=== PATIENT | female | born 1940 | race Caucasian/White ===

== ENCOUNTER 2023-08-11 17:17 | Inpatient (IN) | payer MEDICARE ==
[~2023-08-11] VITALS: Ht 157.5 cm; Wt 59.0 kg
[2023-08-11 17:51] LABS: BASOPHILS % 0.2 % (0.0-1.0); EOSINOPHILS % 0.1 % (0.0-6.0); HEMATOCRIT 38.7 % (34.2-44.1); HEMOGLOBIN 13.7 g/dL (12.0-16.0); LYMPHOCYTES # (AUTO) 0.7 (1.0-3.2); MEAN CORPUSCULAR HEMOGLOBIN 30.8 pg (28-32); MEAN CORPUSCULAR HGB CONC 35.4 g/dL (31-35); MONOCYTES # (AUTO) 0.6 (0.2-0.8); MONOCYTES % 5.4 % (4.4-11.3); NEUTROPHILS # (AUTO) 8.9 (2.1-6.9); NEUTROPHILS % 86.7 % (38.7-80.0); PLATELET COUNT 195 x10e3/uL (140-360); RED BLOOD COUNT 4.45 x10e6/uL (3.6-5.1); RED CELL DISTRIBUTION WIDTH 12.7 % (11.7-14.4); WHITE BLOOD COUNT 10.27 x10e3/uL (4.8-10.8)
[2023-08-11] MEDS ORDERED: FLUTICASONE-SA1 EAC1 (17:52)
[2023-08-11] MEDS ORDERED: LEVOTHYROXINE75 MCG PO (17:52)
[2023-08-11] MEDS ORDERED: ATENOLOL-CHLOR1 EAC1 PO (17:52)
[2023-08-11] MEDS ORDERED: PRAVASTATIN SOD20 MG PO (17:52)
[2023-08-11 18:08] LABS: CLARITY,URINE CLOUDY (CLEAR); COLOR,URINE YELLOW (YELLOW); LEUKOCYTE ESTERASE ,URINE MODERATE (NEGATIVE); NITRITE,URINE POSITIVE (NEGATIVE); PH,URINE 6.5 (5 - 7)
[2023-08-11 18:08] LABS: ALBUMIN 3.2 g/dL (3.5-5.0); ALBUMIN/GLOBULIN RATIO 0.8 (0.8-2.0); ANION GAP 18.3 mmol/L (8-16); BILIRUBIN,TOTAL 0.9 mg/dL (0.2-1.2); CALCIUM 8.8 mg/dL (8.4-10.2); CREATININE, SERUM 0.87 mg/dL (0.57-1.11); TOTAL PROTEIN 7.2 g/dL (6.5-8.1)
[2023-08-11 18:09] LABS: BILIRUBIN,URINE NEGATIVE (NEGATIVE); GLUCOSE, URINE NEGATIVE (NEGATIVE); KETONES,URINE NEGATIVE (NEGATIVE); PROTEIN,URINE DIPSTICK 1+ (NEGATIVE); URINE UROBILINOGEN 4 mg/dL (0.2 - 1)
[2023-08-11 18:11] LABS: POTASSIUM 3.3 mmol/L (3.5-5.1)
[2023-08-11 18:18] LABS: BACTERIA,URINE MANY /HPF; EPITHELIAL CELLS,URINE MANY /LPF; TRANSITIONAL EPI CELLS,URINE MODERATE; WBC,URINE (MAN) >50 /HPF (0-5)
[2023-08-11] MEDS ORDERED: SODIUM CHLORIDE FLUSH 10 ML SYR INJ PRN (19:15)
[2023-08-11 19:56] LABS: TROPONIN I 0.015 ng/mL (0-0.300)
[2023-08-11 20:27] VITALS: PULSE 77; RESP 16; O2SAT 89
[2023-08-11 20:29] VITALS: PULSE 77; RESP 16; O2SAT 95
[2023-08-11 21:30] VITALS: BP 116/70; PULSE 76; RESP 18; TEMP 97.9; O2SAT 95
[2023-08-11 22:00] VITALS: BP 116/70; PULSE 76; RESP 18; TEMP 97.9; O2SAT 95
[2023-08-11] MEDS: LORAZEPAM INJ 2 MG/ML VIAL IV ONE (23:40)
[2023-08-12] VITALS (9 sets, daily range): BP systolic 98–106; BP diastolic 53–60; PULSE 68–79; RESP 16–20; TEMP 97.8–98.8; O2SAT 92–98
[2023-08-12] MEDS: SODIUM CHLORIDE 0.9% 250ML 250 ML ONE (00:08)
[2023-08-12 04:57] LABS: BASOPHILS % 0.4 % (0.0-1.0); EOSINOPHILS % 0.4 % (0.0-6.0); HEMATOCRIT 37.3 % (34.2-44.1); HEMOGLOBIN 12.7 g/dL (12.0-16.0); LYMPHOCYTES # (AUTO) 0.6 (1.0-3.2); LYMPHOCYTES % 5.8 % (18.0-39.1); MEAN CORPUSCULAR HEMOGLOBIN 30.3 pg (28-32); MONOCYTES # (AUTO) 0.6 (0.2-0.8); MONOCYTES % 5.1 % (4.4-11.3); NEUTROPHILS # (AUTO) 9.5 (2.1-6.9); NEUTROPHILS % 87.8 % (38.7-80.0); PLATELET COUNT 170 x10e3/uL (140-360); RED BLOOD COUNT 4.19 x10e6/uL (3.6-5.1); RED CELL DISTRIBUTION WIDTH 12.6 % (11.7-14.4); WHITE BLOOD COUNT 10.77 x10e3/uL (4.8-10.8)
[2023-08-12 05:19] LABS: ALBUMIN 2.8 g/dL (3.5-5.0); ALBUMIN/GLOBULIN RATIO 0.8 (0.8-2.0); ANION GAP 14.9 mmol/L (8-16); BILIRUBIN,TOTAL 1.5 mg/dL (0.2-1.2); CALCIUM 8.7 mg/dL (8.4-10.2); CREATININE, SERUM 0.77 mg/dL (0.57-1.11); TOTAL PROTEIN 6.1 g/dL (6.5-8.1)
[2023-08-12 05:31] LABS: POTASSIUM 2.9 mmol/L (3.5-5.1)
[2023-08-12 05:54] LABS: TROPONIN I 0.02 ng/mL (0-0.300)
[2023-08-12] MEDS ORDERED: POTASSIUM CHLORIDE 20 MEQ TAB CR PO STA (08:01)
[2023-08-12] MEDS: POTASSIUM CHLORIDE 10MEQ/100ML 200 ML IV ONE (09:47)
[2023-08-12 10:08] LABS: BAND NEUTROPHILS % (MANUAL) 1 %; LYMPHOCYTES % (MANUAL) 8 % (19-48); MONOCYTES % (MANUAL) 3 % (3.4-9.0); NEUTROPHILS % (MANUAL) 88 % (40-74)
[2023-08-12 10:09] LABS: PLATELET ESTIMATE ADEQUATE; PLATELET MORPHOLOGY COMMENT NORMAL; RBC MORPHOLOGY COMMENT NORMAL
[2023-08-12] MEDS ORDERED: POTASSIUM CHLORIDE 20 MEQ TAB CR PO SCH (10:30)
[2023-08-12] MEDS ORDERED: ONDANSETRON HCL INJ 2MG/ML 2ML 2 MG/ML VIAL IV PRN (10:45)
[2023-08-12] MEDS ORDERED: ACETAMINOPHEN 325 MG TAB PO PRN (10:45)
[2023-08-12] MEDS: SODIUM CHLORIDE 452MG TAB PO SCH (11:56)
[2023-08-12] MEDS ORDERED: POTASSIUM CHLORIDE 20MEQ/15ML UDC NG ONE ×2 (13:00→16:00)
[2023-08-12] MEDS: KCL 20 MEQ PACKET/ ORAL SOLN NG ONE ×2 (13:57→17:40)
[2023-08-12 15:54] LABS: TROPONIN I 0.006 ng/mL (0-0.300)
[2023-08-12] MEDS: ENOXAPARIN 30 MG/0.3 ML SYR SC SCH (17:40)
[2023-08-12] MEDS: DRONABINOL 2.5MG PO SCH (17:40)
[2023-08-12] MEDS: SALMETEROL XINAF/FLUTICASONE 250/50 MCG INHALER INH SCH (19:39)
[2023-08-12] MEDS: LORAZEPAM INJ 2 MG/ML VIAL IV PRN (21:00)
[2023-08-13] VITALS (9 sets, daily range): BP systolic 92–133; BP diastolic 48–88; PULSE 71–78; RESP 16–18; TEMP 97.7–98.6; O2SAT 92–98
[2023-08-13] MEDS ORDERED: PIPERACILLIN/TAZOBACTAM 3.375 GM VIAL ONE (01:28)
[2023-08-13] MEDS: LEVOTHYROXINE SODIUM 75 MCG TAB PO SCH (06:00)
[2023-08-13 10:57] LABS: ANION GAP 10.9 mmol/L (8-16); CALCIUM 8.3 mg/dL (8.4-10.2); CREATININE, SERUM 0.7 mg/dL (0.57-1.11)
[2023-08-13 11:02] LABS: POTASSIUM 2.9 mmol/L (3.5-5.1)
[2023-08-13] MEDS: PRAVASTATIN 20 MG TAB PO SCH (11:37)
[2023-08-13] MEDS: POTASSIUM CHLORIDE 10MEQ/100ML 100 ML IV SCH ×2 (12:26→18:06)
[2023-08-13] MEDS: FLUMAZENIL 0.1 MG/ML 10 ML VIAL IV ONE (13:37)
[2023-08-13] MEDS: D5NS/KCL 20MEQ 1,000 ML IV SCH (14:47)
[2023-08-13] MEDS: MELATONIN 3 MG TAB PO SCH (20:58)
[2023-08-14] VITALS (13 sets, daily range): BP systolic 98–128; BP diastolic 58–84; PULSE 67–106; RESP 15–20; TEMP 97.6–98.4; O2SAT 84–100
[2023-08-14 06:41] LABS: BASOPHILS % 0.3 % (0.0-1.0); EOSINOPHILS # (AUTO) 0.2 (0.0-0.4); HEMATOCRIT 34.4 % (34.2-44.1); HEMOGLOBIN 11.9 g/dL (12.0-16.0); LYMPHOCYTES # (AUTO) 0.9 (1.0-3.2); LYMPHOCYTES % 14.1 % (18.0-39.1); MEAN CORPUSCULAR HGB CONC 34.6 g/dL (31-35); MEAN CORPUSCULAR VOLUME 89.6 fL (81-99); MONOCYTES # (AUTO) 0.5 (0.2-0.8); MONOCYTES % 7.8 % (4.4-11.3); NEUTROPHILS # (AUTO) 4.7 (2.1-6.9); PLATELET COUNT 168 x10e3/uL (140-360); RED BLOOD COUNT 3.84 x10e6/uL (3.6-5.1); RED CELL DISTRIBUTION WIDTH 13.1 % (11.7-14.4); WHITE BLOOD COUNT 6.32 x10e3/uL (4.8-10.8)
[2023-08-14 07:04] LABS: ANION GAP 11.6 mmol/L (8-16); CALCIUM 8.2 mg/dL (8.4-10.2); CREATININE, SERUM 0.6 mg/dL (0.57-1.11); POTASSIUM 3.6 mmol/L (3.5-5.1)
[2023-08-14] MEDS: SODIUM CHLORIDE 0.9% 500ML 500 ML ONE (10:03)
[2023-08-14] MEDS ORDERED: ONDANSETRON HCL 4 MG ORAL DISINTEGRATING TAB PO PRN (10:30)
[2023-08-14 11:12] LABS: FOLATE 5.8 ng/mL (7.0-15.4)
[2023-08-14] MEDS: ALBUTEROL/IPRATROPIUM 3 ML NEB NEB SCH (11:54)
[2023-08-14] MEDS: FOLIC ACID 1 MG TAB PO SCH (15:04)
[2023-08-14] MEDS: CYANOCOBALAMIN INJ 1,000 MCG/ML VIAL IM ONE (15:04)
[2023-08-15] VITALS (13 sets, daily range): BP systolic 100–128; BP diastolic 50–78; PULSE 79–106; RESP 17–20; TEMP 96.5–98.3; O2SAT 95–100
[2023-08-15 06:13] LABS: ANION GAP 16.5 mmol/L (8-16); CALCIUM 8.4 mg/dL (8.4-10.2); CREATININE, SERUM 0.61 mg/dL (0.57-1.11); POTASSIUM 3.5 mmol/L (3.5-5.1)
[2023-08-15] MEDS: CYANOCOBALAMIN INJ 1,000 MCG/ML VIAL IM SCH (14:42)
[2023-08-15] MEDS: MELATONIN 3 MG TAB PO PRN (23:55)
[2023-08-16] VITALS (7 sets, daily range): BP systolic 112–132; BP diastolic 63–75; PULSE 62–92; RESP 17–18; TEMP 97.1–98.3; O2SAT 94–100
[2023-08-16 06:15] LABS: ANION GAP 11.5 mmol/L (8-16); CALCIUM 8.3 mg/dL (8.4-10.2); CREATININE, SERUM 0.52 mg/dL (0.57-1.11); POTASSIUM 3.5 mmol/L (3.5-5.1)
[2023-08-16] MEDS ORDERED: CEFDINIR300 MG PO (10:12)
[2023-08-16] MEDS ORDERED: Folic Acid PO (10:12)
[2023-08-16] MEDS ORDERED: ACETAMINOPHEN325 M1 PO (12:51)
[2023-08-16] MEDS ORDERED: MELATONIN3 MG PO (12:51)
[2023-08-20] MEDS ORDERED: HYDROCHLOROTHIAZIDE 25 MG TAB ONE (10:16)
== END 2023-08-16 16:49 | disposition home or self-care (01) | DRG 689 ==
LOC: ER 17:20 → ERHOLD 19:08 → MED/SURG 21:18 → MED/SURG2 08-14 19:25
PROVIDERS: ADMIT Internal Medicine; ATTEND Internal Medicine
DX: N39.0 Urinary tract infection, site not specified (principal); G92.8 Other toxic encephalopathy; E87.1 Hypo-osmolality and hyponatremia; E46 Unspecified protein-calorie malnutrition; R64 Cachexia; M62.82 Rhabdomyolysis; E44.0 Moderate protein-calorie malnutrition; I50.32 Chronic diastolic (congestive) heart failure; B96.20 Unspecified Escherichia coli [E. coli] as the cause of diseases classified elsewhere; E86.0 Dehydration; E78.00 Pure hypercholesterolemia, unspecified; E03.9 Hypothyroidism, unspecified; J44.9 Chronic obstructive pulmonary disease, unspecified; F03.90 Unspecified dementia, unspecified severity, without behavioral disturbance, psychotic disturbance, mood disturbance, and anxiety; R62.7 Adult failure to thrive; Z68.23 Body mass index [BMI] 23.0-23.9, adult; E87.6 Hypokalemia; Z66 Do not resuscitate; I95.9 Hypotension, unspecified; I25.10 Atherosclerotic heart disease of native coronary artery without angina pectoris; I73.9 Peripheral vascular disease, unspecified; G62.9 Polyneuropathy, unspecified; Z11.52 Encounter for screening for COVID-19; R74.8 Abnormal levels of other serum enzymes; Z79.890 Hormone replacement therapy; Z87.891 Personal history of nicotine dependence; I11.0 Hypertensive heart disease with heart failure
CPT/HCPCS: 36415; 70450; 71045; 74230; 80048; 80053; 81001; 82550; 82607; 82746; 83036; 83735; 83880; 84443; 84484; 85025; 87086; 87186; 93005; 93306; 94640; 94664; 94760; 94799; 99284; J0696; J1650; J2060; J2543; J3420; J3480; J7040; J7050; U0002

== ENCOUNTER 2023-12-05 04:14 | Emergency (ER) | payer MEDICARE ==
[~2023-12-05] VITALS: Ht 157.5 cm; Wt 59.0 kg
[2023-12-05 04:14] VITALS: PULSE 0; RESP 0; TEMP 97
[~2023-12-05 04:14] MED LIST: ACETAMINOPHEN325 M1 PO; ATENOLOL-CHLOR1 EAC1 PO; CEFDINIR300 MG PO; FLUTICASONE-SA1 EAC1; Folic Acid PO; LEVOTHYROXINE75 MCG PO; MELATONIN3 MG PO; PRAVASTATIN SOD20 MG PO
[2023-12-05 04:15] VITALS: PULSE 136; RESP 16; O2SAT 88
[2023-12-05] MEDS ORDERED: NOREPINEPHRINE 8 MG/D5W 250 ML 250 ML ONE (04:27)
[2023-12-05] MEDS ORDERED: EPINEPHRINE HCL SYRINGE ONE (11:31)
== END 2023-12-05 04:24 | disposition expired ==
LOC: ER 04:21
DX: I46.9 Cardiac arrest, cause unspecified (principal); E03.9 Hypothyroidism, unspecified; E78.5 Hyperlipidemia, unspecified; G30.9 Alzheimer's disease, unspecified; F02.80 Dementia in other diseases classified elsewhere, unspecified severity, without behavioral disturbance, psychotic disturbance, mood disturbance, and anxiety
CPT/HCPCS: 31500; 92950; 94002; 94799; 99284; J0171